=== PATIENT | male | born 1960 | race Caucasian/White ===

== ENCOUNTER 2023-12-02 09:47 | Inpatient (IN) | payer OTHER, SELFPAY ==
--- NOTE | 2023-11-27 11:22 | CM ---
Patient is scheduled for an elective R Reverse TSA on 12/02/23- he is a same day patient. Spoke with patient and his prior to surgery. Introduced role of Orthopedic Navigator. Patient reports that he lives with his in a two story home.
Currently he functions independently. He does not have any DME. He has never had VN services. PCP is Delisa Canales.
Discussed orthopedic program and post surgical plans. Patient will return home when directed by surgeon. Reviewed MD follow up and transition to outpatient therapy. Patient is in agreement with tentative plan and states that his will be home
with him and can assist if needed.
Patient will complete online education.
Plan: Orthopedic Navigator will be involved in the care of patient after surgery and will reassess discharge needs at that time.
[2023-11-28 13:33] VITALS: BMI 29.6
[2023-11-28 13:55] VITALS: BMI 29.6
[2023-11-28 14:02] LABS: Hematocrit 42.5 % (39.0-52.0); Hemoglobin 14.8 g/dL (13.0-18.0); Mean Corp Hgb Conc. 34.8 g/dL (33.0-37.0); Mean Corpuscular Hgb 32.4 pg (27.0-31.0); Mean Platelet Volume 9.7 fL (7.4-10.4); Platelet Count 222 10^3/uL (130-400); Red Blood Cell Count 4.57 10^6/uL (4.70-6.10); Red Cell Dist. Width 12.8 % (11.5-14.5); White Blood Cell Count 6.1 10^3/uL (4.8-10.8)
[2023-11-28 14:13] LABS: ALT (SGPT) 47 U/L (0-50); AST (SGOT) 37 U/L (17-59); Albumin 4.6 g/dl (3.5-5.0); Alkaline Phosphatase 77 U/L (38-126); Blood Urea Nitrogen 15 mg/dl (9-20); Calcium 9.7 mg/dl (8.4-10.2); Carbon Dioxide 26 mmol/L (22-30); Chloride 102 mmol/L (98-107); Estimated Creatinine Clearance 88 ml/min; Glucose 118 mg/dl (70-99); Potassium 4.1 mmol/L (3.5-5.1); Sodium 135 mmol/L (135-145); Total Bilirubin 0.6 mg/dl (0.2-1.3); Total Protein 7.6 g/dl (6.3-8.2); eGFR > 60.00
[2023-11-29 08:59] LABS: Glycohemoglobin (HgbA1c) 5.8 % (4.0-5.6)
[2023-12-02] VITALS (12 sets, daily range): BP systolic 104–157; BP diastolic 57–96; PULSE 55; O2SAT 97; BMI 29.6
[2023-12-02] MEDS: NORMOSOL-R 1000 IV ×2 (06:45→10:39)
--- NOTE | 2023-12-02 09:56 | CON.CAR ---
Addendum entered and electronically signed by Chong Vazquez MD 12/02/23 11:01:
63 yo male with PMH of CAD, [place], RCA stent 2007, HTN, hypertension is admitted following shoulder surgery. He is chest pain free. Exam with RRR, no murmurs, no edema.
Continue ASA, beta mundo, ACEi.
Post op EKG and tele.
Original Note:
Consultation
Consultation Request
Date/Time Consultation Requested: 12/02/23940
Date/Time Consultation Performed: 12/01/4057
Requesting Provider: Dr. Campbell
Performing Provider: Ros MAIER for Dr. Vazquez
Reason for Consultation: post-op, cardiac history
Medical History
-
Chief Complaint: shoulder surgery
History of Present Illness:
63 y/o male with CAD with hx stenting (2007, RCA per patient), dyslipidemia, smoking, and hypertension who is s/p right reverse total shoulder arthroplasty. We are consulted for post-op cardiac management due to his history of CAD. He is currently
calm and comfortable, but lethargic after getting Dilaudid per nursing. He denies any CP or SOB. 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
Past Medical History
Past Medical History: CAD, HTN and Hypercholesterolemia
Social History
Tobacco: Smoker (hx smoking per OP notes)
Family History
Family History: CAD (brother)
Allergies / Home Medications
Allergy/AdvReac Type Severity Reaction Status Date / Time
steroids Allergy disoriented Uncoded 12/02/23 06:23
and hot
flashes
�Medication �Instructions �Recorded �Confirmed �Type
aspirin 81 mg chewable tablet 162 mg PO DAILY 09/13/23 12/02/23 History
atorvastatin 40 mg tablet 40 mg PO QPM 09/13/23 12/02/23 History
ezetimibe 10 mg tablet 10 mg PO DAILY 09/13/23 12/02/23 History
metoprolol tartrate 25 mg tablet 25 mg PO DAILY 09/13/23 12/02/23 History
ramipril 2.5 mg capsule 2.5 mg PO DAILY 09/13/23 12/02/23 History
Review of Systems
-
History Source: Patient
All other systems: Negative unless noted
Musculoskeletal: Other (shoulder discomfort)
Physical Exam
Vital Signs
Temp Pulse Resp BP Pulse Ox
97.7 F 78 17 132/74 100
12/02/23 09:37 12/02/23 09:45 12/02/23 09:45 12/02/23 09:45 12/02/23 09:52
Lab Results
11/28/23 13:29
11/28/23 13:29
Physical Exam
General: Well Developed, Well Nourished and No Apparent Distress
HEENT: Normocephalic and Anicteric
Respiratory: Clear and Non Labored Respirations
Cardiac: Regular Rhythm
Musculoskeletal: No Edema
Neuro: AO x 3
Psych: Calm
Impression / Plan
-
Right reverse total shoulder arthroplasty:
-VSS
-pain management and DVT prophylaxis per ortho
CAD with hx stenting:
-stable without CP
-continue ASA, statin, BB
-check EKG, follow telemetry
Dyslipidemia:
-continue statin
HTN: stable
-continue ACEI and BB
Hx smoking:
-encourage no smoking at d/c
Data Reviewed
-
EKG: Tracing Personally Visualized and interpreted (Jun 04 2023: CELESTINE MANCUSO)
Medical Tests (Nuc Med, Echo etc): Other (stress echo: 08/23/23: no echo evidence for exercise induced ischemic, persistent hypo of basal to mid inferior wall rest with exercise c/w small area of inferior scar)
Labs: Labs Reviewed by me (pre-op)
--- NOTE | 2023-12-02 10:03 | W.PN.UPDATE ---
Update Note
Progress Note Update
R shoulder RC arthropathy s/p R Reverse TSA w/ Dr Campbell 12/02/23
DVT prophylaxis - ASA, b/l venous foot pumps
HTN - + parameters - monitor BP
CAD/MA s/p PCI w/ RCA stent 2007 - continue ASA but at 325 mg daily dosing x4 weeks for blood clot prevention
- Appreciate cardio input
PVCs, asymptomatic - monitor on tele
- Post-op EKG stable
Asthma - monitor O2
- IS
Current tobacco abuse - smoking cessation education to be provided charisse-op
- Nicoderm patch offered
HLD
[2023-12-02] MEDS: DILAUDID 0.25 MG IV ×2 (10:05→10:19)
[2023-12-02] MEDS: TORADOL 10 MG IV (10:35)
--- NOTE | 2023-12-02 11:34 | PTCARENOTE ---
Pt arrived to 2S in bed. Full assessment completed. Pt drowsy but easily arouses with verbal stimuli. R shoulder aquacel C/D/I. RUE NWB, maintained in sling. RUE with decreased movement and sensation, warm, pink, + radial. Current every day smoker,
pt refusing nicotine patch at this time. Telemetry applied. Nasal cannula maintained. IVF infusing per order. Bed locked and in the lowest position, safety maintained. Oriented to room and call finney, family at bedside.
[2023-12-02] MEDS: LOPRESSOR 25 MG PO (12:31)
[2023-12-02] MEDS: TYLENOL 650 MG PO ×4 (12:31→23:47)
[2023-12-02] MEDS: ZETIA 10 MG PO (12:31)
[2023-12-02] MEDS: ROXICODONE 10 MG PO (12:36)
[2023-12-02] MEDS: ANCEF 5 IV ×2 (18:22→23:46)
[2023-12-02] MEDS: LIPITOR 40 MG PO (18:22)
[2023-12-02] MEDS: ASPIRIN 325 MG PO (18:22)
[2023-12-02] MEDS: SENOKOT 17.1999999999999993 MG PO (20:29)
[2023-12-02] MEDS: COLACE 100 MG PO (20:29)
[2023-12-03 03:00] VITALS: BP 113/65
[2023-12-03] MEDS: TYLENOL 650 MG PO ×3 (04:12→12:14)
[2023-12-03 07:00] VITALS: BP 122/66
[2023-12-03] MEDS: ASPIRIN 325 MG PO (07:49)
[2023-12-03] MEDS: ZETIA 10 MG PO (07:49)
[2023-12-03] MEDS: COLACE 100 MG PO (07:50)
[2023-12-03] MEDS: LOPRESSOR 25 MG PO (07:50)
[2023-12-03] MEDS: SENOKOT 17.1999999999999993 MG PO (07:50)
--- NOTE | 2023-12-03 07:56 | W.PN.UPDATE ---
Update Note
Progress Note Update
Comfortable
VSS
Dressing D and I
For DC to home
F/U !7-10 days
GGMD
--- NOTE | 2023-12-03 08:08 | W.PN.CD ---
Today's Communication / Plan
-
- no cardiac contraindication to anticipated d/c
- no med changes
- Follow up with Dr. López
Impression / Plan
-
Right reverse total shoulder arthroplasty:
-VSS
-pain management and DVT prophylaxis per ortho
CAD with hx stenting:
-stable without CP
-continue ASA, statin, BB
-check EKG -> fine
Dyslipidemia:
-continue statin
HTN: stable
-continue ACEI and BB
Hx smoking:
-encourage no smoking at d/c
Dispo
- no cardiac contraindication to anticipated d/c
- no med changes
- Follow up with Dr. López
Physical Exam
Vital Signs/Labs
Vital Signs
Temp Pulse Resp BP Pulse Ox
36.7 C 73 16 122/66 96
12/03/23 07:00 12/03/23 07:50 12/03/23 07:00 12/03/23 07:50 12/03/23 07:00
11/28/23 13:29
11/28/23 13:29
Physical Exam
Constitutional: No acute distress
EENT: Anicteric and Moist mucous membranes
Cardiovascular: Rhythm & rate is regular, Pedal edema is absent, Systolic murmur absent and Diastolic murmur absent
Respiratory: Respiratory effort normal
GI: Soft
Neuro/Psych: Alert
Data Reviewed
-
Date of Service: December 03, 2023
EKG: Other (SR with PVC)
Echo: Other (Tele ok)
--- NOTE | 2023-12-03 08:36 | CM ---
Addendum entered by Cheri Hill 12/03/23 09:36:
Patient did well in therapy. He has no concerns about going home.
Original Note:
Reviewed chart and held rounds with OT and nursing. Patient admitted as planned for elective R Reverse TSA. Met with patient at bedside. Confirmed information previously obtained for case management assessment and discussed discharge plans. The plan
is for patient to return home at discharge. He will have support from his when he goes home. Discussed MD follow up and he has already scheduled his appointment.
Patient will use [facility] pharmacy for discharge prescriptions.
Discharge plans were reviewed with patient's on 12/01.
No needs currently identified.
[2023-12-03 09:30] VITALS: BP 130/67; PULSE 64; O2SAT 95
[2023-12-03 11:00] VITALS: BP 128/71
--- NOTE | 2023-12-03 12:39 | W.DS.TRANS ---
DC Summary - Upper Shaper
-
Discharge Instructions:
Sleep Apnea Risk Intermediate
Discharge Diagnosis/Procedures Right shoulder rotator cuff arthropathy/Right
reverse total shoulder replacement
Diet No restrictions
Additional Activity Sling all times R Upper Extremity
Driving Restrictions No driving
Bathing Restrictions Keep R shoulder dressing on and dry until seen
Blood Work None
Others Tests None
Wound Care Leave dressing on and dry until seen
Specialty Instructions Weigh Daily
Instructions:
Stand-Alone Forms: SDS Total Shoulder D/C Inst.
Changes to Home Medications: Yes
Discharge Medications:
DC Medications w/original date entered in [employer]
acetaminophen 325 mg tablet 650 mg (2 x 325 mg) PO Q4HWA #2 tabs 12/03/23
aspirin 325 mg tablet 325 mg PO DAILY #1 tab 12/03/23
atorvastatin 40 mg tablet 40 mg PO QPM #1 tab 12/03/23
celecoxib 200 mg capsule 200 mg PO DAILY anti-inflammatory #14 caps 12/03/23
docusate sodium 100 mg capsule 100 mg PO BID #1 cap 12/03/23
ezetimibe 10 mg tablet 10 mg PO DAILY #1 tab 12/03/23
famotidine 20 mg tablet 20 mg PO HS GI prophylaxis #30 tabs 12/03/23
gabapentin 300 mg capsule 300 mg PO HS sleep/pain #10 caps 12/03/23
magnesium hydroxide 400 mg/5 mL oral suspension 30 ml PO DAILYPRN PRN constipation #60 mL 12/03/23
metoprolol tartrate 25 mg tablet 25 mg PO DAILY #1 tab 12/03/23
nicotine 14 mg/24 hr daily transdermal patch 14 mg transdermal DAILY #1 ea 12/03/23
oxycodone 5 mg tablet 5 mg PO Q6H PRN 1 tab moderate pain, 2 tabs severe pain #30 tabs 12/03/23
ramipril 2.5 mg capsule 2.5 mg PO DAILY #1 cap 12/03/23
sennosides 8.6 mg tablet (Senna Laxative) 17.2 mg (2 x 8.6 mg) PO BID #2 tabs 12/03/23
Home Medication Changes
celecoxib 200 mg capsule 200 mg PO DAILY anti-inflammatory #14 caps 12/03/23
famotidine 20 mg tablet 20 mg PO HS GI prophylaxis #30 tabs 12/03/23
gabapentin 300 mg capsule 300 mg PO HS sleep/pain #10 caps 12/03/23
oxycodone 5 mg tablet 5 mg PO Q6H PRN 1 tab moderate pain, 2 tabs severe pain #30 tabs 12/03/23
Pending Results: No
== END 2023-12-03 13:11 | disposition home or self-care (01) | DRG 483 ==
LOC: 2 SOUTH 09:47
PROVIDERS: Internal Medicine; ADMITTING PHYSICIAN Orthopaedic Surgery Hand Surgery; CONSULT PHYSICIAN Internal Medicine; FAMILY PHYSICIAN Family Medicine
PROC: 0RRJ00Z Replacement of Right Shoulder Joint with Reverse Ball and Socket Synthetic Substitute, Open Approach (ICD-10-PCS; 2023-12-02)
DX: M19.011 Primary osteoarthritis, right shoulder (principal); M75.121 Complete rotator cuff tear or rupture of right shoulder, not specified as traumatic; I25.10 Atherosclerotic heart disease of native coronary artery without angina pectoris; E78.00 Pure hypercholesterolemia, unspecified; I10 Essential (primary) hypertension; Z79.82 Long term (current) use of aspirin; Z95.5 Presence of coronary angioplasty implant and graft
CPT/HCPCS: 36415; 73020; 80053; 83036; 85027; 87070; 93005; 97110; 97167; 97535; 99406